=== PATIENT | male | born 1970 | race Caucasian/White ===

== ENCOUNTER 2018-04-07 10:58 | Emergency (ER) | payer BC ==
[2018-04-07 11:25] VITALS: BP 154/89
--- NOTE | 2018-04-07 12:08 | UC ---
Knee Pain HPI - HPI Summary HPI Summary: 47 y/o female presents to the urgent care c/o left knee pain s/p bumping his knee in a concrete wall about 1 week ago. Pt states he at the beginning it wasn' t as bad, but since he has done a lot of bending left knee became swollen and has progressively worsen. Pain is 7/10 sharp w/ bending. Pt has taken Advil PO and applied ice to alleviate symptoms. Last dose taken was at 0730pm. He is waling w/ mild limping. Pt denies numbness or tingling sensation, calf pain, abdominal pain, SOB, chest pain, N/v/D. - History of Current Complaint Chief Complaint: UCLowerExtremity Stated Complaint: KNEE PAIN Time Seen by Provider: 04/07/18 12:01 Hx Obtained From: Patient Onset/Duration: Gradual Onset, Lasting Weeks - 1 week, Still Present, Worse Since - 3 days Severity Initially: Mild Severity Currently: Moderate Pain Intensity: 8 Pain Scale Used: 0-10 Numeric Character: Sharp, Stiffness Aggravating Factor(s): Movement, Prolonged Standing, Stairs Alleviating Factor(s): Rest, OTC Meds Associated Signs And Symptoms: Positive: Swelling - around patella. Negative: Redness, Bruising, Fever, Weakness, Numbness, Tingling Able to Bear Weight: Yes - Risk Factors Septic Arthritis Risk Factor: Negative Gout Risk Factor: Negative - Allergies/Home Medications Allergies/Adverse Reactions: Allergies Allergy/AdvReac Type Severity Reaction Status Date / Time No Known Allergies Allergy Verified 04/07/18 11:19 PMH/Surg Hx/FS Hx/Imm Hx Previously Healthy: Yes Endocrine History: Dyslipidemia GI/ History: Gastroesophageal Reflux - Surgical History Surgical History: Yes Surgery Procedure, Year, and Place: CLEFT PALATE AN . 2002 LUMPECTOMY ON [place], OFFICE - Family History Known Family History: Positive: Cardiac Disease, Diabetes - Social History Occupation: Employed Full-time Lives: With Family Alcohol Use: Daily Substance Use Type: None Smoking Status (MU): Heavy Every Day Tobacco Smoker Type: Cigarettes Amount Used/How Often: 1/2 ppd Review of Systems Constitutional: Negative Skin: Other - swelling around left patella Eyes: Negative ENT: Negative Respiratory: Negative Cardiovascular: Negative Gastrointestinal: Negative Genitourinary: Negative Motor: Negative Neurovascular: Negative Musculoskeletal: Decreased ROM - left knee, Other: - left knee pain s/p injury Neurological: Negative Psychological: Negative Is Patient Immunocompromised?: No All Other Systems Reviewed And Are Negative: Yes Physical Exam - Summary Physical Exam Summary: Vital Signs Reviewed: Yes General: well developed, well nourished male sitting in the examining table w/o any apparent distress Eyes: Positive: Conjunctiva Clear - PERRLA, EOMI, fundi grossly normal ENT: Positive: Normal ENT inspection, Hearing grossly normal, Pharynx normal, TMs normal Neck: Positive: Supple, Nontender, No Lymphadenopathy Respiratory: Positive: Chest nontender, Lungs clear, Normal breath sounds, No respiratory distress Cardiovascular: Positive: RRR, No Murmur, Pulses Normal, Brisk Capillary Refill Abdomen Description: Positive: Nontender, No Organomegaly, Soft. Negative: CVA Tenderness (R), CVA Tenderness (L) Bowel Sounds: Positive: Present Musculoskeletal: Positive: Strength Intact, No Edema, left Knee: Pt is able to bear weight and ambulate with mild limping. No surface trauma, mild soft tissue swelling around left patella, no obvious effusion. No overlying erythema or warmth. The L knee is without obvious asymmetry or deformity when compared with the R knee. Decreased ROM of LF knee due to pain. PT tenderness to palpation of the patella, no effusion or ballottement. PT tenderness over the infrapatellar tendon. No Point tenderness over the medial joint line, No tenderness over the medial or lateral tibial plateaus. No tenderness over the proximal fibular head, No tenderness, fullness or mass of the popliteal fossa. No quadriceps tenderness. No laxity of the ACL. PCL, MCL, or LCL. no collateral ligament laxity to valgus or varus stress. Negative Hema/Drawer sign. Negative Jina. Distal motor and neurovascular status intact. Neurological Exam: Normal Psychological Exam: Normal Skin Exam: Normal Triage Information Reviewed: Yes Vital Signs: Initial Vital Signs Temp 98.9 F 04/07/18 11:21 Pulse 82 04/07/18 11:21 Resp 16 04/07/18 11:21 BP 154/89 04/07/18 11:21 Pulse Ox 98 04/07/18 11:21 Knee Pain Course/Dx - Course Course Of Treatment: 47 y/o female presents to the urgent care c/o left knee pain s/p bumping his knee in a concrete wall about 1 week ago. Pt states he at the beginning it wasn't as bad, but since he has done a lot of bending left knee became swollen and has progressively worsen. Pain is 7/10 sharp w/ bending. Pt has taken Advil PO and applied ice to alleviate symptoms. Last dose taken was at 0730pm. He is waling w/ mild limping. Pt denies numbness or tingling sensation, calf pain, abdominal pain, SOB, chest pain, N/v/D.Hx obtained. LF knee X-ray ordered. Impression:No acute osseous injury, only small suprapatellar joint effusion. Pt's knee immobilized w/ mary bandage and gien a toradol IM inj at the clinic. Pt tolerated well IM inj and pain decrease.Advised RICE. Avoid strenuous exercise or standing for long period of time. Also recommended if not improvement of symptoms to f/u with Orthopedic Dr Gonzalez or your PCP in 1 week for further evaluation and treatment. Pt's BP is elevated today advised to decrease salt in diet, monitor BP and f/u with PCP for further management. PT understood and agreed with D/C instructions. - Differential Dx/Diagnosis Differential Diagnosis/HQI/PQRI: Contusion, Fracture (Closed), Patellofemoral Syndrome, Sprain, Strain, Tendonitis Provider Diagnoses: 1- Left knee pain s/p injury. 2- Left knee patellofemoral syndrome. 3- Elevated BP w/o Hx of HTN Discharge - Sign-Out/Discharge Documenting (check all that apply): Patient Departure - D/c home All imaging exams completed and their final reports reviewed: Yes - Discharge Plan Condition: Stable Disposition: HOME Prescriptions: Ibuprofen TAB* [Motrin TAB* 800 MG] 800 mg PO Q6H PRN #30 tab PRN Reason: Pain Patient Education Materials: Low-Sodium Diet (ED), Patellar Tendinitis (ED) Referrals: Sonia Gonzalez MD [Medical Doctor] - 1 Week Geovany Greene MD [Primary Care Provider] - 1 Week Additional Instructions: 1-Please take Ibuprofen PO q6-8hrs prn as directed to alleviate pain and swelling. 2-Please apply ice, keep your knee immobilized with the splint. Avoid strenuous exercise, standing for long period of time. elevate your leg as much as possible. 3- Please f/u with Orthopedic Dr Gonzalez or your PCP in 1 week if not improvement of symptoms for further evaluation and treatment. 4-Your BP is elevated today. please decrease salt in your diet, monitor BP and if it continues to be elevated please f/u with your PCP for further management - Billing Disposition and Condition Condition: STABLE Disposition: Home
[2018-04-07] MEDS ORDERED: Ketorolac INJ* 30 MG/ML 1 ML VIAL IM ONE (12:24)
--- NOTE | 2018-04-07 12:45 | RAD ---
HISTORY: left knee pain s/p injury COMPARISONS: None VIEWS: 4, Frontal, lateral, axial, and oblique views of the left knee FINDINGS: BONE DENSITY: Normal. BONES: There is no displaced fracture. JOINTS: There is no arthropathy. There is a small suprapatellar joint effusion. There is no M arthrosis. ALIGNMENT: There is no dislocation. SOFT TISSUES: Unremarkable. OTHER FINDINGS: None. IMPRESSION: NO ACUTE OSSEOUS INJURY. IF SYMPTOMS PERSIST, RECOMMEND REPEAT IMAGING.
== END 2018-04-07 13:20 | disposition home or self-care (01) ==
LOC: UCEAST 10:58
DX: S89.92XA Unspecified injury of left lower leg, initial encounter (principal); W22.09XA Striking against other stationary object, initial encounter; Y93.9 Activity, unspecified; Y92.9 Unspecified place or not applicable; M22.2X2 Patellofemoral disorders, left knee; R03.0 Elevated blood-pressure reading, without diagnosis of hypertension; F17.210 Nicotine dependence, cigarettes, uncomplicated
CPT/HCPCS: 99212; G0463; J1885

== ENCOUNTER 2021-11-01 12:14 | Inpatient (IN) ==
[2021-11-01 13:22] LABS: ABS Lymphocytes 0.7 10^3/ul (1.0-4.8); ABS Monocytes 0.9 10^3/ul (0-0.8); ABS Neutrophils 9.1 10^3/ul (1.5-7.7); Eosinophil % 0.1 %; Hematocrit 37 % (42-52); Hemoglobin 12.3 g/dL (14.0-18.0); Lymphocyte % 6.3 %; Mean Corpuscular HGB Conc 34 g/dL (31-36); Mean Corpuscular Hemoglobin 30 pg (27-31); Mean Corpuscular Volume 90 fL (80-94); Mean Platelet Volume 7.3 fL (7.4-10.4); Platelet Count 430 10^3/uL (150-450); Red Cell Distribution Width 13 % (10-15); White Blood Count 10.8 10^3/uL (3.5-10.8)
[2021-11-01 13:52] LABS: Albumin/Globulin Ratio 1.7 (1-3); C Reactive Protein 70.82 mg/L (<8.01); Calcium 8.9 mg/dL (8.6-10.3); Globulin 2.4 g/dL (2-4); Potassium 4.2 mmol/L (3.5-5.0); Total Bilirubin 0.5 mg/dL (0.2-1.0); Total Protein 6.4 g/dL (6.4-8.9)
[2021-11-01] MEDS ORDERED: Iohexol 300 (CONTRAST) 10 ML SDV IV ONE (13:55)
[2021-11-01] MEDS ORDERED: Lactated Ringers 1000 ml BAG 1,000 ML IV ONE (15:10)
[2021-11-01] MEDS ORDERED: Piperacillin/Tazobac ADVAN 3.375 GM in NS 0.9% 100 ml BAG 100 ML IV ONE (17:18)
[2021-11-01] MEDS ORDERED: Zosyn per Pharmacy NOTE FOLLOW UP SCH (18:00)
[2021-11-01] MEDS: ZOSYN 3.375 GM Q8H per EXTENDED INFUSION IV SCH (22:42)
[2021-11-02 06:01] LABS: ABS Lymphocytes 0.8 10^3/ul (1.0-4.8); ABS Monocytes 0.7 10^3/ul (0-0.8); Eosinophil % 0.5 %; Hematocrit 34 % (42-52); Hemoglobin 11.5 g/dL (14.0-18.0); Lymphocyte % 10.8 %; Mean Corpuscular HGB Conc 34 g/dL (31-36); Mean Corpuscular Hemoglobin 30 pg (27-31); Mean Corpuscular Volume 89 fL (80-94); Mean Platelet Volume 7.6 fL (7.4-10.4); Platelet Count 361 10^3/uL (150-450); Red Blood Count 3.88 10^6 /uL (4.18-5.48); Red Cell Distribution Width 13 % (10-15); White Blood Count 7.6 10^3/uL (3.5-10.8)
[2021-11-02 06:25] LABS: Calcium 8.5 mg/dL (8.6-10.3); Potassium 3.8 mmol/L (3.5-5.0); eGFR CKD-EPI 104.7 (>60)
[2021-11-02] MEDS: ZOSYN 3.375 GM Q8H per EXTENDED INFUSION IV SCH ×3 (06:39→21:07)
[2021-11-02] MEDS: Nicotine PATCH 21 MG/24 HR PATCH TRANSDERM SCH (08:08)
[2021-11-03] MEDS: ZOSYN 3.375 GM Q8H per EXTENDED INFUSION IV SCH ×3 (05:47→22:51)
[2021-11-03 08:17] LABS: ABS Lymphocytes 0.7 10^3/ul (1.0-4.8); ABS Monocytes 0.7 10^3/ul (0-0.8); ABS Neutrophils 7.6 10^3/ul (1.5-7.7); Eosinophil % 0.4 %; Hematocrit 35 % (42-52); Hemoglobin 12.1 g/dL (14.0-18.0); Lymphocyte % 7.9 %; Mean Corpuscular HGB Conc 34 g/dL (31-36); Mean Corpuscular Hemoglobin 30 pg (27-31); Mean Corpuscular Volume 89 fL (80-94); Mean Platelet Volume 7.4 fL (7.4-10.4); Platelet Count 354 10^3/uL (150-450); Red Blood Count 3.99 10^6 /uL (4.18-5.48); Red Cell Distribution Width 13 % (10-15)
[2021-11-03 08:35] LABS: C Reactive Protein 119.52 mg/L (<8.01); Calcium 8.5 mg/dL (8.6-10.3); Potassium 3.8 mmol/L (3.5-5.0); eGFR CKD-EPI 105.8 (>60)
[2021-11-03] MEDS: Nicotine PATCH 21 MG/24 HR PATCH TRANSDERM SCH (11:23)
[2021-11-04 06:08] LABS: ABS Eosinophils 0.1 10^3/ul (0-0.6); ABS Lymphocytes 0.8 10^3/ul (1.0-4.8); ABS Monocytes 0.8 10^3/ul (0-0.8); ABS Neutrophils 6.9 10^3/ul (1.5-7.7); Eosinophil % 1.1 %; Hematocrit 32 % (42-52); Hemoglobin 11.1 g/dL (14.0-18.0); Lymphocyte % 9.6 %; Mean Corpuscular HGB Conc 34 g/dL (31-36); Mean Corpuscular Hemoglobin 30 pg (27-31); Mean Corpuscular Volume 88 fL (80-94); Mean Platelet Volume 7.6 fL (7.4-10.4); Platelet Count 294 10^3/uL (150-450); Red Blood Count 3.68 10^6 /uL (4.18-5.48); Red Cell Distribution Width 13 % (10-15); White Blood Count 8.6 10^3/uL (3.5-10.8)
[2021-11-04] MEDS: ZOSYN 3.375 GM Q8H per EXTENDED INFUSION IV SCH ×3 (06:09→23:15)
[2021-11-04 06:21] LABS: Calcium 8.5 mg/dL (8.6-10.3); Potassium 3.8 mmol/L (3.5-5.0); eGFR CKD-EPI 91.2 (>60)
[2021-11-04] MEDS: Nicotine PATCH 21 MG/24 HR PATCH TRANSDERM SCH (09:16)
[2021-11-05] MEDS: ZOSYN 3.375 GM Q8H per EXTENDED INFUSION IV SCH (06:43)
[2021-11-05] MEDS: Nicotine PATCH 21 MG/24 HR PATCH TRANSDERM SCH (10:40)
[2021-11-05 11:00] VITALS: BP 133/62
== END 2021-11-05 13:15 | disposition home or self-care (01) | DRG 244 ==
LOC: ED 12:14 → EDHOLD 17:03 → SSU 18:43
PROVIDERS: ADMIT Internal Medicine; ATTEND Internal Medicine

== ENCOUNTER 2021-11-22 15:39 | Inpatient (IN) ==
[2021-11-22 17:00] LABS: ABS Lymphocytes 0.4 10^3/ul (1.0-4.8); ABS Monocytes 0.5 10^3/ul (0-0.8); ABS Neutrophils 13.8 10^3/ul (1.5-7.7); Hematocrit 37 % (42-52); Hemoglobin 12.6 g/dL (14.0-18.0); Lymphocyte % 2.9 %; Mean Corpuscular HGB Conc 34 g/dL (31-36); Mean Corpuscular Hemoglobin 30 pg (27-31); Mean Corpuscular Volume 87 fL (80-94); Mean Platelet Volume 7.6 fL (7.4-10.4); Platelet Count 340 10^3/uL (150-450); Red Blood Count 4.24 10^6 /uL (4.18-5.48); Red Cell Distribution Width 13 % (10-15); White Blood Count 14.7 10^3/uL (3.5-10.8)
[2021-11-22 17:35] LABS: Albumin 4.5 g/dL (3.2-5.2); Albumin/Globulin Ratio 1.7 (1-3); C Reactive Protein 23.96 mg/L (<8.01); Calcium 8.9 mg/dL (8.6-10.3); Globulin 2.6 g/dL (2-4); Total Bilirubin 0.7 mg/dL (0.2-1.0); Total Protein 7.1 g/dL (6.4-8.9); eGFR CKD-EPI 93.4 (>60)
[2021-11-22] MEDS ORDERED: Iohexol 300 (CONTRAST) 10 ML SDV IV ONE (18:05)
[2021-11-22] MEDS ORDERED: Zosyn 3.375 GM IV - ED ONCE IV ONE (18:30)
[2021-11-22] MEDS: D5W 1/2 NS KCl 20 meq 1000 ml 1,000 ML IV SCH (18:43)
[2021-11-22] MEDS: HYDROmorphone 1 MG/1 ML SYRINGE IV SLOW PU PRN (18:43)
[2021-11-22 23:15] LABS: Urine Appearance Clear; Urine Bilirubin Negative (Negative); Urine Blood Negative (Negative); Urine Color Yellow; Urine Glucose Negative (Negative); Urine Ketones Negative (Negative); Urine Nitrite Negative (Negative); Urine Protein Negative (Negative); Urine Specific Gravity 1.036 (1.002-1.030); Urine Urobilinogen Negative (Negative)
[2021-11-23] MEDS: HYDROmorphone 1 MG/1 ML SYRINGE IV SLOW PU PRN ×4 (01:58→21:14)
[2021-11-23] MEDS: Piperacillin/Tazobactam VIAL 3.375 GM in NS 0.9% 100 ml BAG 100 ML IVPB SCH ×3 (02:09→18:02)
[2021-11-23] MEDS: D5W 1/2 NS KCl 20 meq 1000 ml 1,000 ML IV SCH ×3 (04:19→21:13)
[2021-11-23 06:01] LABS: ABS Lymphocytes 0.7 10^3/ul (1.0-4.8); ABS Monocytes 0.5 10^3/ul (0-0.8); ABS Neutrophils 9.3 10^3/ul (1.5-7.7); Eosinophil % 0.1 %; Hematocrit 32 % (42-52); Hemoglobin 10.9 g/dL (14.0-18.0); Lymphocyte % 6.6 %; Mean Corpuscular HGB Conc 34 g/dL (31-36); Mean Corpuscular Hemoglobin 30 pg (27-31); Mean Corpuscular Volume 87 fL (80-94); Mean Platelet Volume 7.7 fL (7.4-10.4); Platelet Count 281 10^3/uL (150-450); Red Blood Count 3.68 10^6 /uL (4.18-5.48); Red Cell Distribution Width 13 % (10-15); White Blood Count 10.6 10^3/uL (3.5-10.8)
[2021-11-24] MEDS: Piperacillin/Tazobactam VIAL 3.375 GM in NS 0.9% 100 ml BAG 100 ML IVPB SCH ×3 (01:48→17:16)
[2021-11-24] MEDS: HYDROmorphone 1 MG/1 ML SYRINGE IV SLOW PU PRN ×3 (01:55→23:20)
[2021-11-24] MEDS: D5W 1/2 NS KCl 20 meq 1000 ml 1,000 ML IV SCH ×2 (04:59→17:06)
[2021-11-24] MEDS ORDERED: PEG 3000 GI LAVAGE 1 GALLON PO ONE (12:00)
[2021-11-25] MEDS: Piperacillin/Tazobactam VIAL 3.375 GM in NS 0.9% 100 ml BAG 100 ML IVPB SCH ×2 (01:27→14:56)
[2021-11-25] MEDS: D5W 1/2 NS KCl 20 meq 1000 ml 1,000 ML IV SCH (01:29)
[2021-11-25] MEDS ORDERED: Lactated Ringers 1000 ml BAG 1,000 ML IV SCH (06:00)
[2021-11-25] MEDS ORDERED: Famotidine IV 10 MG/ML 2 ml VIAL (20 mg) IV ONE (06:00)
[2021-11-25] MEDS ORDERED: Famotidine IV 10 MG/ML 2 ml VIAL (20 mg) ONE (06:48)
[2021-11-25] MEDS ORDERED: Lidocaine 2% PF 5 ML VIAL ONE (07:01)
[2021-11-25] MEDS ORDERED: Dexmedetomidine 200 mcg/2 ml 2 ml VIAL (200 mcg) ONE (07:01)
[2021-11-25] MEDS ORDERED: Dexamethasone IV 4 MG/ML VIAL 1 ml VIAL ONE (07:01)
[2021-11-25] MEDS ORDERED: Propofol 10 MG/ML 20 ML BTL ONE ×2 (07:01→11:41)
[2021-11-25] MEDS ORDERED: Ondansetron 4 mg VIAL 2 MG/ML 2 ml VIAL ONE (07:01)
[2021-11-25] MEDS ORDERED: Sodium Chloride 0.9% 10 ML ONE (07:01)
[2021-11-25] MEDS ORDERED: Rocuronium 50 mg VIAL 10 mg/ml 5 ml VIAL (50 mg) ONE (07:02)
[2021-11-25] MEDS ORDERED: fentaNYL 100 mcg/2 ml 50 MCG/ML VIAL ONE (07:05)
[2021-11-25] MEDS ORDERED: Glycopyrrolate IV 0.2 MG/ML 1 ML VIAL ONE (07:11)
[2021-11-25] MEDS ORDERED: Ketamine HCL 50 mg/ml 10 ml VIAL (500 MG) ONE (07:12)
[2021-11-25] MEDS ORDERED: Bupivacaine 0.25% w/EPI 10 ML SDV ONE (08:09)
[2021-11-25] MEDS ORDERED: HYDROmorphone 0.5 MG/0.5 ML SYRINGE ONE ×2 (08:53→10:26)
[2021-11-25] MEDS ORDERED: Ropivacaine 0.2% 2 MG/ML VIAL ONE (10:43)
[2021-11-25] MEDS ORDERED: Naloxone 0.4 mg VIAL 0.4 mg/ml 1 ml VIAL IV PRN (11:01)
[2021-11-25] MEDS ORDERED: fentaNYL 100 mcg/2 ml 50 MCG/ML VIAL IV PRN (11:01)
[2021-11-25] MEDS ORDERED: DiMENhydriNATE IV 50 mg/ml 1 ml VIAL IV PUSH PRN (11:01)
[2021-11-25] MEDS ORDERED: HYDROmorphone 1 MG/1 ML SYRINGE IV PRN (11:01)
[2021-11-25] MEDS ORDERED: Naloxone 0.4 mg VIAL 0.4 mg/ml 1 ml VIAL IV PUSH PRN (11:19)
[2021-11-25] MEDS ORDERED: HYDROmorphone PCA 20 MG/20 ML PCA.SYRING PCA SCH (12:00)
[2021-11-25] MEDS ORDERED: HYDROmorphone 1 MG/1 ML SYRINGE ONE (12:14)
[2021-11-25] MEDS ORDERED: Piperacillin/Tazobactam VIAL 3.375 GM in NS 0.9% 100 ml BAG 100 ML IVPB SCH (16:00)
[2021-11-25] MEDS: D5W 1/2 NS w/KCL 20 MEQ IVFLUID 1000 ML IV SCH (20:37)
[2021-11-26 05:48] LABS: Hematocrit 29 % (42-52); Hemoglobin 9.9 g/dL (14.0-18.0); Mean Corpuscular HGB Conc 34 g/dL (31-36); Mean Corpuscular Hemoglobin 30 pg (27-31); Mean Corpuscular Volume 88 fL (80-94); Mean Platelet Volume 8.1 fL (7.4-10.4); Platelet Count 297 10^3/uL (150-450); Red Blood Count 3.32 10^6 /uL (4.18-5.48); Red Cell Distribution Width 13 % (10-15); White Blood Count 7.5 10^3/uL (3.5-10.8)
[2021-11-26 06:01] LABS: Calcium 8.4 mg/dL (8.6-10.3); Potassium 4.3 mmol/L (3.5-5.0); eGFR CKD-EPI 109.7 (>60)
[2021-11-26] MEDS: D5W 1/2 NS w/KCL 20 MEQ IVFLUID 1000 ML IV SCH (06:47)
[2021-11-26] MEDS: Acetaminophen IV 1 GM/100ML 100 ML IV SCH ×2 (07:26→17:16)
[2021-11-26] MEDS ORDERED: D5W 1/2 NS KCl 20 meq 1000 ml 1,000 ML IV SCH (09:48)
[2021-11-26] MEDS ORDERED: HYDROmorphone 1 MG/1 ML SYRINGE IV SLOW PU PRN (11:01)
[2021-11-26 11:42] LABS: Activated Partial Thrombo Time 30.5 seconds (26.0-38.0); INR 1.35 (0.86-1.15)
[2021-11-26] MEDS: HYDROmorphone 0.5 MG/0.5 ML SYRINGE IV SLOW PU PRN ×2 (14:23→18:10)
[2021-11-26] MEDS: Heparin 5000 UNITS/ML 1 mL VIAL SUBCUT SCH ×2 (14:24→21:08)
[2021-11-27] MEDS: HYDROmorphone 0.5 MG/0.5 ML SYRINGE IV SLOW PU PRN ×2 (00:12→05:27)
[2021-11-27] MEDS: Acetaminophen IV 1 GM/100ML 100 ML IV SCH ×3 (00:13→16:53)
[2021-11-27] MEDS: Heparin 5000 UNITS/ML 1 mL VIAL SUBCUT SCH ×3 (05:27→22:15)
[2021-11-28] MEDS: Acetaminophen IV 1 GM/100ML 100 ML IV SCH ×3 (00:23→22:58)
[2021-11-28] MEDS: Heparin 5000 UNITS/ML 1 mL VIAL SUBCUT SCH ×3 (06:15→22:58)
[2021-11-29] MEDS: Acetaminophen IV 1 GM/100ML 100 ML IV SCH ×2 (00:08→08:01)
[2021-11-29] MEDS: Heparin 5000 UNITS/ML 1 mL VIAL SUBCUT SCH (05:22)
[2021-11-29 05:59] LABS: ABS Eosinophils 0.1 10^3/ul (0-0.6); ABS Monocytes 0.5 10^3/ul (0-0.8); ABS Neutrophils 3.5 10^3/ul (1.5-7.7); Eosinophil % 1.4 %; Hematocrit 34 % (42-52); Hemoglobin 11.3 g/dL (14.0-18.0); Lymphocyte % 20.5 %; Mean Corpuscular HGB Conc 33 g/dL (31-36); Mean Corpuscular Hemoglobin 29 pg (27-31); Mean Corpuscular Volume 88 fL (80-94); Mean Platelet Volume 7.5 fL (7.4-10.4); Platelet Count 357 10^3/uL (150-450); Red Blood Count 3.87 10^6 /uL (4.18-5.48); Red Cell Distribution Width 13 % (10-15)
[2021-11-29 11:09] VITALS: BP 133/65
== END 2021-11-29 16:00 | disposition home or self-care (01) | DRG 221 ==
LOC: ED 15:39 → EDHOLD 18:33 → SSU 20:10
PROVIDERS: ADMIT Surgery; ATTEND Surgery

== ENCOUNTER 2022-01-09 07:30 | Inpatient (IN) ==
[~2022-01-09 07:30] MED LIST: Buffered Lidocaine 1% SYRIN 1 ml INTRADERM ONE; HYDROcodone/ACETAMIN 5/325 mg TAB PO PRN; Lactated Ringers 1000 ml BAG 1,000 ML IV SCH; Metoclopramide 5 MG/ML VIAL (10 mg) IV PRN; Naloxone 0.4 mg VIAL 0.4 mg/ml 1 ml VIAL IV PRN; Ondansetron 4 mg VIAL 2 MG/ML 2 ml VIAL IV PRN
[2022-01-09] MEDS ORDERED: ceFAZolin 2 GM in NS PREMIX 2 GM/100 ML BAG IVPB ONE (14:34)
[2022-01-09 15:43] LABS: Hematocrit 33 % (42-52); Hemoglobin 10.9 g/dL (14.0-18.0); Mean Corpuscular HGB Conc 34 g/dL (31-36); Mean Corpuscular Hemoglobin 29 pg (27-31); Mean Corpuscular Volume 87 fL (80-94); Mean Platelet Volume 7.1 fL (7.4-10.4); Platelet Count 261 10^3/uL (150-450); Red Blood Count 3.73 10^6 /uL (4.18-5.48); Red Cell Distribution Width 16 % (10-15); White Blood Count 5.5 10^3/uL (3.5-10.8)
[2022-01-09 15:49] LABS: INR 1.04 (0.86-1.15)
[2022-01-09] MEDS ORDERED: Bupivacaine 0.5% W/EPI SDV 10 ML VIAL INJ ONE (16:21)
[2022-01-09 16:37] LABS: Calcium 9.2 mg/dL (8.6-10.3); Potassium 3.8 mmol/L (3.5-5.0); eGFR CKD-EPI 92.8 (>60)
[2022-01-09] MEDS ORDERED: fentaNYL 100 mcg/2 ml 50 MCG/ML VIAL ONE ×4 (16:49→19:15)
[2022-01-09] MEDS ORDERED: Rocuronium 50 mg VIAL 10 mg/ml 5 ml VIAL (50 mg) ONE (16:50)
[2022-01-09] MEDS ORDERED: Propofol 10 MG/ML 20 ML BTL ONE (16:51)
[2022-01-09] MEDS ORDERED: Ondansetron 4 mg VIAL 2 MG/ML 2 ml VIAL ONE (16:51)
[2022-01-09] MEDS ORDERED: Dexamethasone IV 4 MG/ML VIAL 1 ml VIAL ONE ×2 (16:51→17:21)
[2022-01-09] MEDS ORDERED: Midazolam 2 mg/2 ml VIAL 1 mg/ml 2 ml VIAL (2 mg) ONE (16:51)
[2022-01-09] MEDS ORDERED: EPHEDrine (Pressors) 50 MG/ML VIAL ONE (17:26)
[2022-01-09] MEDS ORDERED: Ondansetron 4 mg VIAL 2 MG/ML 2 ml VIAL IV PRN (18:58)
[2022-01-09] MEDS ORDERED: HYDROmorphone 0.5 MG/0.5 ML SYRINGE IV SLOW PU PRN (19:05)
[2022-01-09] MEDS ORDERED: HYDROmorphone 1 MG/1 ML SYRINGE IV SLOW PU PRN (19:05)
[2022-01-09] MEDS ORDERED: Acetaminophen IV 1 GM/100ML 100 ML IV ONE (19:15)
[2022-01-09] MEDS ORDERED: Acetaminophen IV 1 GM/100ML 100 ML IV SCH ×2 (19:15)
[2022-01-09] MEDS: fentaNYL 100 mcg/2 ml 50 MCG/ML VIAL IV PRN ×2 (19:21→19:42)
[2022-01-09] MEDS ORDERED: HYDROcodone/ACETAMIN 5/325 mg TAB ONE (19:48)
[2022-01-10] MEDS: Acetaminophen IV 1 GM/100ML 100 ML IV SCH ×3 (05:01→21:56)
[2022-01-10 06:29] LABS: ABS Lymphocytes 0.4 10^3/ul (1.0-4.8); ABS Monocytes 0.2 10^3/ul (0-0.8); ABS Neutrophils 6.2 10^3/ul (1.5-7.7); Hematocrit 33 % (42-52); Hemoglobin 11.1 g/dL (14.0-18.0); Lymphocyte % 5.9 %; Mean Corpuscular HGB Conc 34 g/dL (31-36); Mean Corpuscular Hemoglobin 29 pg (27-31); Mean Corpuscular Volume 87 fL (80-94); Platelet Count 266 10^3/uL (150-450); Red Blood Count 3.81 10^6 /uL (4.18-5.48); Red Cell Distribution Width 16 % (10-15); White Blood Count 6.8 10^3/uL (3.5-10.8)
[2022-01-10 07:02] LABS: Potassium 4.5 mmol/L (3.5-5.0); eGFR CKD-EPI 85.5 (>60)
[2022-01-10] MEDS: Enoxaparin 40 MG/0.4 ML SYR SUBCUT SCH (08:59)
[2022-01-10] MEDS: Vitamin THERAPEUTIC TAB PO SCH (08:59)
[2022-01-10] MEDS: Pravastatin 20 mg TAB (NF) PO SCH (08:59)
[2022-01-11] MEDS: Acetaminophen IV 1 GM/100ML 100 ML IV SCH ×3 (05:32→21:19)
[2022-01-11] MEDS: Enoxaparin 40 MG/0.4 ML SYR SUBCUT SCH (07:56)
[2022-01-11] MEDS: Pravastatin 20 mg TAB (NF) PO SCH (07:56)
[2022-01-11] MEDS: Vitamin THERAPEUTIC TAB PO SCH (07:56)
[2022-01-12] MEDS: Acetaminophen IV 1 GM/100ML 100 ML IV SCH (06:26)
[2022-01-12 08:14] VITALS: BP 113/72
[2022-01-12] MEDS: Enoxaparin 40 MG/0.4 ML SYR SUBCUT SCH (08:30)
[2022-01-12] MEDS: Pravastatin 20 mg TAB (NF) PO SCH (08:30)
[2022-01-12] MEDS: Vitamin THERAPEUTIC TAB PO SCH (08:31)
== END 2022-01-12 10:57 | disposition home or self-care (01) | DRG 223 ==
LOC: AA → EDSTATUS 07:30 → SSU 19:25
PROVIDERS: ADMIT Surgery; ATTEND Surgery